=== PATIENT | male | born 1945 | race Caucasian/White ===

== ENCOUNTER 2016-09-26 17:53 | Observation (INO) | payer MEDICARE, BC ==
[~2016-09-26] VITALS: Ht 185.4 cm; Wt 108.4 kg
[~2016-09-26 17:53] MED LIST: ALLOPURINOL300 MG PO; AMLODIPINE BESY10 MG PO; CELLCEPT 250MG250 MG PO; COUMADIN2.5 MG PO; COUMADIN5 M1 PO; HCTZ/LISINOPRIL1 TA2 PO; SENORMIN50 MG PO; SODIUM BICARBO650 MG PO; ZOCOR 40MG40 MG PO
[2016-09-26 18:32] LABS: INFLUENZA B NEGATIVE
[2016-09-26 18:36] LABS: HEMATOCRIT 37.5 % (42.0-52.0); HEMOGLOBIN 12.6 g/dl (13.5-18.0); MEAN CELL VOLUME 96 fl (80.0-100.0); MEAN CORPUSCULAR HEMOGLOBIN 32 pg (27.0-31.0); MEAN CORPUSCULAR HGB CONC 34 g/dl (33.0-37.0); MEAN PLATELET VOLUME 10.1 fl (7.4-10.4); PLATELET COUNT 92 K/mm3 (130-400); RED BLOOD COUNT 3.92 M/mm3 (4.20-5.60); REDCELL DISTRIBUTION WIDTH-CV 13.8 % (11.5-14.5); WHITE BLOOD COUNT 6.4 K/mm3 (4.8-10.8)
[2016-09-26 18:40] LABS: ADD PATHOLOGY DIFF REVIEW NO
[2016-09-26 18:42] LABS: INR 1.4 (0.8-3.0); PROTHROMBIN TIME 16.1 SECONDS (9.7-12.8)
[2016-09-26 18:48] LABS: ADJUSTED CALCIUM 9.4 mg/dL (8.4-10.2); CALCIUM 9.4 mg/dL (8.4-10.2); POTASSIUM 4.5 mmol/L (3.4-5.0); TOTAL PROTEIN 7.6 gm/dL (6.4-8.2)
[2016-09-26 18:49] LABS: CREATININE, serum 6.07 mg/dL (0.66-1.25)
[2016-09-26 18:50] LABS: BAND 23 % (0-10); BASOPHIL 1 % (0-2); MYELOCYTE 1 % (0-0); NEUTROPHILS 68 % (42.0-75.2); PLATELET ESTIMATE DECREASED (NORMAL); TOTAL CELLS COUNTED 100
[2016-09-26 19:02] LABS: TROPONIN-I 0.093 ng/mL (0.000-0.034)
[2016-09-26] MEDS ORDERED: NORVASC 5MG5 MG/TAB PO (19:11)
[2016-09-26] MEDS ORDERED: ROCALTROL0.5 MCG PO (19:12)
[2016-09-26] MEDS ORDERED: HCTZ 25MG TAB25 MG PO (19:13)
[2016-09-26] MEDS ORDERED: PRAVACHOL 40MG40 MG PO (19:14)
[2016-09-26] MEDS ORDERED: COUMADIN 5MG5 MG/TAB PO (19:16)
[2016-09-26 20:59] LABS: PH 5 (5-8); SQUAMOUS EPITHELIAL 0-2 /hpf; URINE APPEARANCE Clear; URINE BACTERIA Rare /hpf; URINE BILIRUBIN Negative (NEGATIVE); URINE BLOOD 2+ (NEGATIVE); URINE COLOR Straw; URINE GLUCOSE 2+ (NEGATIVE); URINE KETONE Negative (NEGATIVE); URINE RBC 0-2 /hpf; URINE UROBILINOGEN Negative (NEGATIVE)
[2016-09-26 21:56] VITALS: BP 126/86; PULSE 99; TEMP 97.8
[2016-09-27] VITALS (7 sets, daily range): BP systolic 125–152; BP diastolic 58–91; PULSE 80–103; TEMP 97.5–99
[2016-09-27] MEDS ORDERED: CALCITRIOL PO (11:09)
[2016-09-28 03:41] VITALS: BP 111/84; PULSE 96; TEMP 98.2
[2016-09-28 07:12] LABS: MEAN CELL VOLUME 95 fl (80.0-100.0); MEAN CORPUSCULAR HGB CONC 34 g/dl (33.0-37.0); MEAN PLATELET VOLUME 10.8 fl (7.4-10.4); PLATELET COUNT 79 K/mm3 (130-400); RED BLOOD COUNT 3.63 M/mm3 (4.20-5.60); REDCELL DISTRIBUTION WIDTH-CV 13.8 % (11.5-14.5); WHITE BLOOD COUNT 3.4 K/mm3 (4.8-10.8)
[2016-09-28 07:17] LABS: HEMATOCRIT 34.3 % (42.0-52.0); HEMOGLOBIN 11.6 g/dl (13.5-18.0); MEAN CORPUSCULAR HEMOGLOBIN 32 pg (27.0-31.0)
[2016-09-28 07:22] LABS: ADD PATHOLOGY DIFF REVIEW NO
[2016-09-28 07:30] LABS: CALCIUM 8.6 mg/dL (8.4-10.2); POTASSIUM 3.6 mmol/L (3.4-5.0)
[2016-09-28 07:45] LABS: CREATININE, serum 6.85 mg/dL (0.66-1.25); TROPONIN-I 0.145 ng/mL (0.000-0.034)
[2016-09-28 08:20] VITALS: BP 129/57; PULSE 80; TEMP 98.4
[2016-09-28 09:59] LABS: EOSINOPHIL 2 % (0-4); NEUTROPHILS 36 % (42.0-75.2); PLATELET ESTIMATE DECREASED (NORMAL)
[2016-09-28 10:00] LABS: BAND 39 % (0-10); BASOPHIL 1 % (0-2); TOTAL CELLS COUNTED 100
[2016-09-28 12:13] VITALS: BP 109/71; PULSE 64; TEMP 96.9
[2016-09-28 17:02] VITALS: BP 137/72; PULSE 99; TEMP 98.6
[2016-09-28] MEDS ORDERED: COUMADIN 77.5 MG/TAB PO (17:19)
== END 2016-09-28 18:14 | disposition home or self-care (01) ==
LOC: COL.ER 17:53 → MEDICAL 20:33
PROVIDERS: Emergency Medicine; Internal Medicine
DX: E87.70 Fluid overload, unspecified (principal); I48.91 Unspecified atrial fibrillation; Z79.01 Long term (current) use of anticoagulants; R79.89 Other specified abnormal findings of blood chemistry; R53.1 Weakness; I12.0 Hypertensive chronic kidney disease with stage 5 chronic kidney disease or end stage renal disease; N18.5 Chronic kidney disease, stage 5; J06.9 Acute upper respiratory infection, unspecified
CPT/HCPCS: G0378; G8978-GP; G8979-GP; J0456; J0696; J1650; J1940; J7030; J7050

== ENCOUNTER 2017-01-09 23:33 | Emergency (ER) | payer MEDICARE, BC ==
[~2017-01-09] VITALS: Ht 185.4 cm; Wt 106.8 kg
[~2017-01-09 23:33] MED LIST changes: +CALCITRIOL PO; +COUMADIN 5MG5 MG/TAB PO; +COUMADIN 77.5 MG/TAB PO; +HCTZ 25MG TAB25 MG PO; +NORVASC 5MG5 MG/TAB PO; +PRAVACHOL 40MG40 MG PO; +ROCALTROL0.5 MCG PO
[2017-01-09 23:38] VITALS: BP 144/81; TEMP 98.4
[2017-01-10 00:49] LABS: BASO % 0.3 % (0.0-2.0); EOS # 0.3 (0.0-0.7); EOS % 2.5 % (0-4.0); GRAN # 9.4 (1.4-6.5); GRAN % 84.8 % (42.2-75.2); LYMPH # 0.6 (1.2-3.4); LYMPH % 5.7 % (20.0-51.0); MEAN CELL VOLUME 97 fl (80.0-100.0); MEAN CORPUSCULAR HGB CONC 32 g/dl (33.0-37.0); MEAN PLATELET VOLUME 10.1 fl (7.4-10.4); MONO # 0.7 (0.1-0.6); MONO % 6.2 % (1.7-9.3); PLATELET COUNT 150 K/mm3 (130-400); RED BLOOD COUNT 3.06 M/mm3 (4.20-5.60); REDCELL DISTRIBUTION WIDTH-CV 14.3 % (11.5-14.5); WHITE BLOOD COUNT 11.1 K/mm3 (4.8-10.8)
[2017-01-10 00:50] LABS: HEMATOCRIT 29.6 % (42.0-52.0); HEMOGLOBIN 9.5 g/dl (13.5-18.0); MEAN CORPUSCULAR HEMOGLOBIN 31 pg (27.0-31.0)
[2017-01-10 00:55] LABS: INR 3.9 (0.8-3.0); PROTHROMBIN TIME 44.9 SECONDS (9.7-12.8)
[2017-01-10 00:57] LABS: PARTIAL THROMBOPLASTIN TIME 52.4 SECONDS (26.0-37.0)
[2017-01-10 01:01] LABS: ADJUSTED CALCIUM 8.9 mg/dL (8.4-10.2); ALBUMIN 3.8 gm/dL (3.5-5.0); BILIRUBIN,TOTAL 0.8 mg/dL (0.0-1.0); C-REACTIVE PROTEIN 6.7 mg/dL (0.0-0.9); CALCIUM 8.7 mg/dL (8.4-10.2); POTASSIUM 3.8 mmol/L (3.4-5.0); TOTAL PROTEIN 7.2 gm/dL (6.4-8.2)
[2017-01-10 01:08] LABS: CREATININE, serum 6.63 mg/dL (0.66-1.25)
[2017-01-10 01:12] LABS: TROPONIN-I 0.099 ng/mL (0.000-0.034)
[2017-01-10 02:50] VITALS: PULSE 89
== END 2017-01-10 02:51 | disposition home or self-care (01) ==
LOC: COL.ER 23:33
PROVIDERS: Emergency Medicine
DX: E87.70 Fluid overload, unspecified (principal); R10.31 Right lower quadrant pain; R10.32 Left lower quadrant pain; I12.0 Hypertensive chronic kidney disease with stage 5 chronic kidney disease or end stage renal disease; R06.02 Shortness of breath; J90 Pleural effusion, not elsewhere classified; N18.6 End stage renal disease; Z99.2 Dependence on renal dialysis
CPT/HCPCS: J2270